=== PATIENT | male | born 1940 | race Caucasian/White ===

== ENCOUNTER → 2022-04-29 | Outpatient (CLI) | payer MEDICARE ==
[2022-04-29 15:37] LABS: African American GFR (CKD) 82.6 (60.0-200.0); BUN/Creat Ratio 16.4 Ratio (12.00-20.00); Blood Urea Nitrogen 16.4 mg/dL (9.0-27.0); Calcium 9.5 mg/dL (8.7-10.3); Non-African American GFR(CKD) 71.3 (60.0-200.0); Potassium 4.6 mmol/L (3.5-5.5)
[2022-04-29 15:39] LABS: Basophils # (A) 0.07 X 10*3/uL (0.00-0.10); Basophils % (A) 0.9 %; Eosinophils % (A) 2.7 %; HCT 43.9 % (39.6-50.0); HGB 14.8 g/dL (13.0-17.0); Immature Grans, Automated 0.3 %; Lymphocytes # (A) 1.42 X 10*3/uL (0.90-5.00); MCH 30.8 pg (27.0-32.0); MCHC 33.7 g/dL (32.0-37.0); MCV 91.5 fL (80.0-97.0); Mean Platelet Volume 11.6 fL (9.5-12.2); Monocytes # (A) 0.53 X 10*3/uL (0.20-1.00); Monocytes % (A) 7.1 %; NRBC Per 100 WBC 0 /100 WBCS (0.0-0.0); Neutrophils # (A) 5.22 X 10*3/uL (1.80-7.70); Platelet Count 260 X 10*3/uL (140-440); RDW 13.8 % (11.5-14.5); WBC 7.46 X 10*3/uL (4.50-10.00)
[2022-04-29 15:40] LABS: RBC Morphology NORMAL
== END | disposition home or self-care (01) ==
LOC: LABWHC1 08:48
PROVIDERS: ATTEND Urology
DX: Z01.812 Encounter for preprocedural laboratory examination (principal); N40.1 Benign prostatic hyperplasia with lower urinary tract symptoms
CPT/HCPCS: 36415; 80048; 85025

== ENCOUNTER 2022-05-06 07:42 | Day surgery (SDC) | payer MEDICARE ==
[2022-05-04 15:57] VITALS: BMI 30.7
--- NOTE | 2022-05-05 22:09 | P.GSHP ---
History of Present Illness H&P Date: 05/05/22 Chief Complaint: Gross hematuria The patient is a 81-year-old white male with a long history of BPH. He developed urinary clot retention and underwent a greenlight laser procedure in July 2016. He has taken finasteride since that time. Since February, he has experienced intermittent gross hematuria. A computed tomography scan in February showed normal upper tracts, but bladder irregularity with hyperdense material was seen. He describes his stream is being weak and prolonged. Cystoscopy has shown significant right prostatic regrowth with intravesical extension. He has elected to undergo transurethral resection of the prostate (TURP). - Cardiovascular Cardiovascular: Reports high blood pressure - Genitourinary (Male) Genitourinary: Reports hematuria Past Medical History Past Medical History: Hyperlipidemia, Prostate Disorder Additional Past Medical History / Comment(s): currently having bloody urine, BPH History of Any Multi-Drug Resistant Organisms: None Reported Past Surgical History: Bladder Surgery, Hernia Repair, Orthopedic Surgery, Tonsillectomy Additional Past Surgical History / Comment(s): orif rt ankle with screw later removed,bladder stones removal,rt inguinal hernia repair Additional Past Anesthesia/Blood Transfusion Reaction / Comment(s): unable to urinate after anesthesia and MS given w/ ORIF ankle Smoking Status: Never smoker - Past Family History Mother Additional Family Medical History / Comment(s): maternal grandfather-anaya [place], mom at 95 Father Additional Family Medical History / Comment(s): father at age 100 Medications and Allergies Home Medications Medication Instructions Recorded Confirmed Type Ascorbic Acid [Vitamin C] 1,000 mg PO DAILY 06/03/16 05/04/22 History Finasteride [Proscar] 5 mg PO QAM 06/03/16 05/04/22 History Multivitamins, Thera [Multivitamin] 1 tab PO TUTHSA 06/03/16 05/04/22 History Vitamin E (Dl,Tocopheryl Acet) 400 unit PO DAILY 06/03/16 05/04/22 History [Vitamin E] Aspirin 325 mg PO DAILY 05/04/22 05/04/22 History Phytosterol/Pantethine [Cholestoff 1 each PO DAILY 05/04/22 05/04/22 History Complete 300Mg Sfgl] [facility] 1 dose PO DAILY 05/04/22 05/04/22 History Urinary Supplement 1 tab PO DAILY 05/04/22 05/04/22 History Allergies Allergy/AdvReac Type Severity Reaction Status Date / Time morphine AdvReac unable to Verified 05/04/22 15:43 urinate after anesthesia and MS w/ ORIF ankle Surgical - Exam - General well developed, well nourished, no distress - Neck no masses, trachea midline - Respiratory normal respiratory effort - Abdomen Abdomen: soft, non tender, no guarding, no rigid, no rebound - Genitourinary normal penis with no external lesions, testicles non-tender - Rectum Rectum: normal sphincter tone, no masses, other (Prostate moderately enlarged, anodular) - Psychiatric oriented to time, oriented to person, oriented to place, speech is normal, memory intact Results - Imaging CT scan - abdomen: report reviewed, image reviewed Assessment and Plan (1) Benign prostatic hyperplasia with lower urinary tract symptoms Status: Acute Code(s): N40.1 - BENIGN PROSTATIC HYPERPLASIA WITH LOWER URINARY TRACT SYMP SNOMED Code(s): 903818079 Plan: Cystoscopy, TURP. Potential risks were discussed, including anesthesia, bleeding, infection, retrograde ejaculation, incontinence, erectile dysfunction, and vesical neck contracture.
[~2022-05-06 07:42] MED LIST: HYDROmorphone 0.5 MG/0.5 ML SYRINGE IVP PRN; LACTATED RINGERS 1,000 ML IV SCH; fentaNYL (PF) 50 MCG/ML 2 ML AMP IV PRN
[2022-05-06] MEDS ORDERED: ONDANSETRON 4 MG/2 ML VIAL ONE (08:07)
[2022-05-06] MEDS ORDERED: DEXAMETHASONE SOD PHOSPHATE 4 MG/ML 1 ML VIAL IVP ONE (08:24)
[2022-05-06] MEDS ORDERED: SUCCINYLCHOLINE CHLORIDE 200 MG/10 ML VIAL IV ONE (08:50)
[2022-05-06] MEDS ORDERED: LIDOCAINE 2% INJ 20 MG/ML (2 ML VIAL) ONE (08:50)
[2022-05-06] MEDS ORDERED: fentaNYL (PF) 50 MCG/ML 2 ML AMP ONE (08:50)
[2022-05-06] MEDS ORDERED: MIDAZOLAM 2 MG/2 ML VIAL ONE (08:50)
[2022-05-06] MEDS ORDERED: NEOSTIGMINE 1 MG/ML 10 ML VIAL ONE (08:50)
[2022-05-06] MEDS ORDERED: PROPOFOL 10 MG/ML 20 ML VIAL IV ONE (08:50)
[2022-05-06] MEDS ORDERED: ROCURONIUM 10 MG/ML (5 ML VIAL) IV ONE (08:50)
[2022-05-06] MEDS ORDERED: ePHEDrine 50 MG/ML 1 ML VIAL ONE (08:50)
[2022-05-06] MEDS ORDERED: GLYCOPYRROLATE 0.2 MG/ML 2 ML VIAL ONE (08:50)
[2022-05-06] MEDS ORDERED: LACTATED RINGERS 1,000 ML IV ONE (11:47)
[2022-05-06 12:14] VITALS: TEMP 97
--- NOTE | 2022-05-06 12:14 | P.OP ---
Date of Procedure: 05/06/22 Preoperative Diagnosis: BPH with obstruction Postoperative Diagnosis: Same Procedure(s) Performed: Cystoscopy, bipolar transurethral resection of prostate (TURP) Anesthesia: LB Surgeon: Mateo George Estimated Blood Loss (ml): 100 IV fluids (ml): 750 Pathology: other (Prostate chips) Condition: stable Disposition: PACU Indications for Procedure: The patient is a 81-year-old white male with a long history of BPH. He developed urinary clot retention and underwent a Greenlight laser procedure in July 2016. He has taken finasteride since that time. Since February, he has experienced intermittent gross hematuria. A CT scan in February showed normal upper tracts, but bladder irregularity with hyperdense material was seen. He describes his stream is being weak and prolonged. Cystoscopy has shown significant right prostatic regrowth with intravesical extension. He has elected to undergo transurethral resection of the prostate (TURP). Operative Findings: Significant residual BPH, R>L Description of Procedure: The patient was taken in the operating room and placed in the dorsolithotomy position. The external genitalia was prepped and draped sterilely. The 25- Japanese A[employer] resectoscope sheath was introduced into the bladder. The bladder was inspected. Significant residual prostatic tissue was noted, particularly distally where there was no evidence of prior resection. The right lateral lobe was prominent and extended intravesically. The bladder was inspected. The ureteral orifices appeared normal. No tumors or foreign bodies were seen. Using the bipolar cutting loop, the right lateral lobes were resected down to the surgical capsule. The floor of the prostate was then resected, proximal to the verumontanum. Next, the small portion of the left lateral lobe was resected posteriorly to the left of the midline. The residual apical tissue was then carefully resected, with care taken to avoid injury to the external urinary sphincter. The resection bed was examined, and any areas of bleeding were controlled with electrocautery. Excellent hemostasis was attained. The resectoscope was withdrawn into the bulbous urethra. The external urinary sphincter remained intact. The prostatic fossa was open. The Nintu Oy evacuator was used to remove all prostate chips from the bladder. These were saved and sent for pathologic examination. The resectoscope was removed, and a 20 Japanese Fisher catheter was placed. The return was essentially clear. The patient tolerated the procedure well was taken to the recovery room in stable condition.
[2022-05-06 13:01] VITALS: PULSE 54; RESP 18
[2022-05-06 13:20] VITALS: BP 127/66
== END 2022-05-06 13:48 | disposition home or self-care (01) ==
LOC: OR 07:42
PROVIDERS: ATTEND Urology
DX: N41.0 Acute prostatitis (principal); N40.1 Benign prostatic hyperplasia with lower urinary tract symptoms; N13.8 Other obstructive and reflux uropathy; E78.5 Hyperlipidemia, unspecified; R31.9 Hematuria, unspecified; N42.9 Disorder of prostate, unspecified; Z98.890 Other specified postprocedural states; Z90.89 Acquired absence of other organs; Z80.8 Family history of malignant neoplasm of other organs or systems; Z88.6 Allergy status to analgesic agent; Z79.899 Other long term (current) drug therapy; Z87.09 Personal history of other diseases of the respiratory system
CPT/HCPCS: 52601; 88305; J2250; J0330; J1100; J2710; J0690; J2405; J3010; J2704; J2001

== ENCOUNTER → 2024-08-27 | Outpatient (CLI) | payer MEDICARE ==
--- NOTE | 2024-08-27 14:20 | US ---
EXAMINATION TYPE: US kidneys/renal and bladder DATE OF EXAM: 08/27/2024 COMPARISON: NONE CLINICAL INDICATION: Male, 84 years old with history of R31.0 GROSS HEMATURIA; TECHNIQUE: Grayscale imaging of the bilateral kidneys and urinary bladder: FINDINGS: EXAM MEASUREMENTS: Right Kidney: 10.1x2.6x4.9cm Left Kidney: 10.9x6.0x4.8cm Right Kidney: No hydronephrosis or masses seen Left Kidney: No hydronephrosis or masses seen Bladder: ?possible slight debris seen within posterior bladder wall ?Prominent prostate: 5.4x5.1x0.6cm Bilateral Jets seen: not visualized at this time IMPRESSION: Enlarged prostate consistent with BPH. Suspect internal debris in the bladder which could cause patie nt's symptoms or hematuria. If symptoms persist however further investigation with CT urogram would b e warranted. [facility], , 08/27/2024 2:18 PM
== END | disposition home or self-care (01) ==
LOC: RADUSWWP 13:43
PROVIDERS: ATTEND Urology
DX: N40.0 Benign prostatic hyperplasia without lower urinary tract symptoms (principal); R31.0 Gross hematuria
CPT/HCPCS: 76770